=== PATIENT | female | born 1995 | race Caucasian/White ===

== ENCOUNTER 2024-04-17 12:41 | Outpatient (CLI) | payer OTHER, SELFPAY ==
--- NOTE | 2024-04-17 12:46 | US_ITS ---
WS: [id number] BILATERAL 3D TOMOSYNTHESIS DIGITAL DIAGNOSTIC MAMMOGRAPHY WITH CAD CLINICAL INFORMATION: BREAST TENDERNESS AND HYPERTROPHY HISTORY: Breast tenderness. Enlarged RIGHT breast.. Family history of breast cancer. COMPARISON: Baseline TECHNIQUE: Bilateral CC, MLO, and ML views. FINDINGS: The breasts are composed of extremely dense tissue, which can limit the detection of small underlying mass lesions. Pain marker RIGHT breast. Dense underlying parenchymal tissue in this area. No suspicious focal mass, asymmetry, calcifications, or architectural distortion. Ultrasound RIGHT breast area of pain is pending. ULTRASOUND BREAST RIGHT TECHNIQUE: Ultrasound right breast focused area of concern. CLINICAL INFORMATION: BREAST TENDERNESS AND HYPERTROPHY FINDINGS: Ultrasound RIGHT breast area of concern at the 6 o'clock position demonstrates dense underlying paren chymal tissue most compatible with dense fibrocystic change. More focal area of dense hypoechoic tiss ue in the area of concern is probably benign and recommend 6-month follow-up ultrasound to confirm st ability. This measures 1.6 x 0.9 x 0.7 cm. Additional ultrasound directed to the RIGHT axilla demonstrates normal underlying parenchymal tissue . No lymphadenopathy. No suspicious lesions to target for biopsy. US/US breast RT limited* [id number] IMPRESSION: DENSITY: The breasts are extremely dense, which lowers the sensitivity of mammo graphy. BI-RADS: 3 - Probably Benign FOLLOW UP: 6 Month Follow-up Recommend 6-month follow-up ultrasound with attention to the RIGHT breast at th e 6 o'clock position.
--- NOTE | 2024-04-17 13:29 | MM_ITS ---
WS: [id number] BILATERAL 3D TOMOSYNTHESIS DIGITAL DIAGNOSTIC MAMMOGRAPHY WITH CAD CLINICAL INFORMATION: BREAST TENDERNESS AND HYPERTROPHY HISTORY: Breast tenderness. Enlarged RIGHT breast.. Family history of breast cancer. COMPARISON: Baseline TECHNIQUE: Bilateral CC, MLO, and ML views. FINDINGS: The breasts are composed of extremely dense tissue, which can limit the detection of small underlying mass lesions. Pain marker RIGHT breast. Dense underlying parenchymal tissue in this area. No suspicious focal mass, asymmetry, calcifications, or architectural distortion. Ultrasound RIGHT breast area of pain is pending. ULTRASOUND BREAST RIGHT TECHNIQUE: Ultrasound right breast focused area of concern. CLINICAL INFORMATION: BREAST TENDERNESS AND HYPERTROPHY FINDINGS: Ultrasound RIGHT breast area of concern at the 6 o'clock position demonstrates dense underlying paren chymal tissue most compatible with dense fibrocystic change. More focal area of dense hypoechoic tiss ue in the area of concern is probably benign and recommend 6-month follow-up ultrasound to confirm st ability. This measures 1.6 x 0.9 x 0.7 cm. Additional ultrasound directed to the RIGHT axilla demonstrates normal underlying parenchymal tissue . No lymphadenopathy. No suspicious lesions to target for biopsy. MM/MM diag BI tomosynthesis [id number] IMPRESSION: DENSITY: The breasts are extremely dense, which lowers the sensitivity of mammo graphy. BI-RADS: 3 - Probably Benign FOLLOW UP: 6 Month Follow-up Recommend 6-month follow-up ultrasound with attention to the RIGHT breast at th e 6 o'clock position.
== END 2024-04-17 12:42 | disposition home or self-care (01) ==
LOC: RAD 12:44
PROVIDERS: Visit Provider Nurse Practitioner Adult Health
DX: N60.11 Diffuse cystic mastopathy of right breast (principal); R92.333 Mammographic heterogeneous density, bilateral breasts; N60.81 Other benign mammary dysplasias of right breast; N64.4 Mastodynia; N62 Hypertrophy of breast
CPT/HCPCS: 76642; 77062; G0279

== ENCOUNTER 2024-10-23 12:33 | Outpatient (CLI) | payer OTHER, SELFPAY ==
--- NOTE | 2024-10-23 12:38 | US_ITS ---
WS: [id number] RIGHT 3D TOMOSYNTHESIS DIGITAL MAMMOGRAPHY WITH CAD CLINICAL INFORMATION: 6 MO FU RT BREAST. ABNORMAL MAMMOGRAM HISTORY: 6-month follow-up COMPARISON: 04/17/2024 TECHNIQUE: 3 views of the right breast were obtained. FINDINGS: The right breast is composed of extremely dense tissue, which can limit the detection of small underlying mass lesions. Palpable marker RIGHT breast. Dense underlying parenchymal tissue is similar to the prior examination. ULTRASOUND BREAST RIGHT TECHNIQUE: Ultrasound right breast focused area of concern. CLINICAL INFORMATION: 6 MO FU RT BREAST. ABNORMAL MAMMOGRAM FINDINGS: Ultrasound RIGHT breast area of concern at the 6 o'clock position again demonstrates dense underlying parenchymal tissue likely due to dense fibrocystic changes. Band of dense parenchymal tissue in this area. Previously described more focal hypoechoic area is unchanged in appearance also likely due to dense fibrocystic change. No new suspicious findings. Findings have a benign appearance. Recommend annual screening mammography age 40. US/US breast RT limited* [id number] IMPRESSION: DENSITY: The breasts are extremely dense, which lowers the sensitivity of mammo graphy. BI-RADS: 2 - Benign FOLLOW UP: Age 39 Recommend annual screening mammography age 39
--- NOTE | 2024-10-23 13:45 | MM_ITS ---
WS: [id number] RIGHT 3D TOMOSYNTHESIS DIGITAL MAMMOGRAPHY WITH CAD CLINICAL INFORMATION: 6 MO FU RT BREAST. ABNORMAL MAMMOGRAM HISTORY: 6-month follow-up COMPARISON: 04/17/2024 TECHNIQUE: 3 views of the right breast were obtained. FINDINGS: The right breast is composed of extremely dense tissue, which can limit the detection of small underlying mass lesions. Palpable marker RIGHT breast. Dense underlying parenchymal tissue is similar to the prior examination. ULTRASOUND BREAST RIGHT TECHNIQUE: Ultrasound right breast focused area of concern. CLINICAL INFORMATION: 6 MO FU RT BREAST. ABNORMAL MAMMOGRAM FINDINGS: Ultrasound RIGHT breast area of concern at the 6 o'clock position again demonstrates dense underlying parenchymal tissue likely due to dense fibrocystic changes. Band of dense parenchymal tissue in this area. Previously described more focal hypoechoic area is unchanged in appearance also likely due to dense fibrocystic change. No new suspicious findings. Findings have a benign appearance. Recommend annual screening mammography age 40. MM/MM diag RT tomosynthesis [id number] IMPRESSION: DENSITY: The breasts are extremely dense, which lowers the sensitivity of mammo graphy. BI-RADS: 2 - Benign FOLLOW UP: Age 39 Recommend annual screening mammography age 39
== END 2024-10-23 12:34 | disposition home or self-care (01) ==
LOC: RAD 12:34
PROVIDERS: PCP Registered Nurse; Visit Provider Obstetrics & Gynecology
DX: N62 Hypertrophy of breast (principal); R92.341 Mammographic extreme density, right breast
CPT/HCPCS: 76642; 77061; G0279